=== PATIENT | female | born 1990 | race Caucasian/White ===

== ENCOUNTER → 2024-11-18 11:05 | Outpatient (REF) | payer OTHER, SELFPAY ==
--- NOTE | 2024-11-18 09:07 | PN.DIAED06 ---
Meal Plan - Gestational
- Breakfast
Gestational Diabetes Meal Plan Name: 2000 calories
Breakfast - Total Carbohydrate (grams): 45 (= 3/15 g. carb servings )
Breakfast - Starch Carbohydrate: 2
Breakfast - Fruit Carbohydrate: 0 (no fruit or juice before noon)
Breakfast - Milk Carbohydrate: 1
Breakfast - Nonstarchy Vegetables: Yes
Breakfast - Meat/Protein: 1 (1 serving protein = 1 oz/7 g)
Breakfast - Fat: 2 (1 serving fat = 5g)
- Morning Snack
Morning Snack - Total Carbohydrate (grams): 30 (= 2/15 g. carb servings)
Morning Snack - Starch Carbohydrate: 1
Morning Snack - Fruit Carbohydrate: 0 (no fruit or juice before noon)
Morning Snack - Milk Carbohydrate: 1
Morning Snack - Nonstarchy Vegetables: Yes
Morning Snack - Meat/Protein: 0
Morning Snack - Fat: 0
- Lunch
Lunch - Total Carbohydrate (grams): 45 (= 3/15 g. carb servings )
Lunch - Starch Carbohydrate: 1
Lunch - Fruit Carbohydrate: 1
Lunch - Milk Carbohydrate: 1
Lunch - Nonstarchy Vegetables: Yes
Lunch - Meat/Protein: 2
Lunch - Fat: 2
- Afternoon Snack
Afternoon Snack - Total Carbohydrate (grams): 30 (= 2/15 g. carb servings)
Afternoon Snack - Starch Carbohydrate: 1
Afternoon Snack - Fruit Carbohydrate: 1
Afternoon Snack - Milk Carbohydrate: 0
Afternoon Snack - Nonstarchy Vegetables: Yes
Afternoon Snack - Meat/Protein: 1
Afternoon Snack - Fat: 0
- Dinner
Dinner - Total Carbohydrate (grams): 45 (= 3/15 g. carb servings )
Dinner - Starch Carbohydrate: 2
Dinner - Fruit Carbohydrate: 1
Dinner - Milk Carbohydrate: 0
Dinner - Nonstarchy Vegetables: Yes
Dinner - Meat/Protein: 2
Dinner - Fat: 2
- Evening Snack
Evening Snack - Total Carbohydrate (grams): 45 (= 3/15 g. carb servings )
Evening Snack - Starch Carbohydrate: 1
Evening Snack - Fruit Carbohydrate: 1
Evening Snack - Milk Carbohydrate: 1
Evening Snack - Nonstarchy Vegetables: Yes
Evening Snack - Meat/Protein: 1
Evening Snack - Fat: 0
--- NOTE | 2024-11-18 14:10 | PN.DE ---
Diabetes Education
- -
11/18/2024 GESTATIONAL DIABETES EDUCATION CONSULT
Met with patient today for medical nutrition therapy. G2,P1 with an VIC of 02/26/2025.
Explained glucose metabolism in body and what occurs during to cause increase in blood sugar. Discussed importance of keeping BS well controlled to avoid complications to the baby during and after (macrosomia, hypoglycemia). Her
first delivery was as baby weighed over 9 lbs. Discussed macronutrients, provided with 2000 [place]aka GDM meal plan. She states she currently does not snack between meals, we discussed healthy snacks to keep glucose levels from dropping.
Discussed physical activity, she currently does not exercise. Discussed walking 10 minutes after meals, or 30 minutes after meals especially if her Am glucose readings are elevated. She is going to [place] on vacation for over a week, plans
to walk much more than usual.
Indu presented to the appointment with a new tritrue glucometer and supplies. Reviewed proper testing technique, testing sites and testing pattern. She is aware to test FBS and 2 hr pp each meal. Expected results for FBS <95 mg/dl and 2 hr pp
<120 mg/dl. Noted for blood sugar of 79 mg/dl 2.5 hrs after breakfast this morning. Log sheet provided for her to record results, she will send a 4-day meal log with all her FBG and 2hr Post prandial glucose numbers to this office for review. In
addition, [facility]. She was encouraged to reach out should she require insulin.
== END ==
LOC: DES 11:05
PROVIDERS: ATTENDING PHYSICIAN Obstetrics & Gynecology
DX: O24.419 Gestational diabetes mellitus in pregnancy, unspecified control (principal)
CPT/HCPCS: 99078

== ENCOUNTER → 2024-11-30 15:54 | Outpatient (REF) | payer OTHER, SELFPAY | LOC: PNTC 15:54 | PROVIDERS: ATTENDING PHYSICIAN Obstetrics & Gynecology | DX: O24.319 Unspecified pre-existing diabetes mellitus in pregnancy, unspecified trimester (principal) | CPT/HCPCS: 76816 ==

== ENCOUNTER → 2025-02-04 08:11 | Outpatient (REF) | payer OTHER, SELFPAY | LOC: PNTC 08:11 | PROVIDERS: ATTENDING PHYSICIAN Obstetrics & Gynecology | DX: O09.523 Supervision of elderly multigravida, third trimester (principal); O09.813 Supervision of pregnancy resulting from assisted reproductive technology, third trimester; O24.420 Gestational diabetes mellitus in childbirth, diet controlled | CPT/HCPCS: 59025; 76816 ==

== ENCOUNTER → 2025-02-11 08:22 | Outpatient (REF) | payer OTHER, SELFPAY | LOC: PNTC 08:22 | PROVIDERS: ATTENDING PHYSICIAN Obstetrics & Gynecology | DX: O24.410 Gestational diabetes mellitus in pregnancy, diet controlled (principal); O09.813 Supervision of pregnancy resulting from assisted reproductive technology, third trimester; O09.523 Supervision of elderly multigravida, third trimester | CPT/HCPCS: 59025; 76815 ==

== ENCOUNTER → 2025-02-18 08:05 | Outpatient (REF) | payer OTHER, SELFPAY | LOC: PNTC 08:05 | PROVIDERS: ATTENDING PHYSICIAN Obstetrics & Gynecology | DX: O09.813 Supervision of pregnancy resulting from assisted reproductive technology, third trimester (principal); O24.410 Gestational diabetes mellitus in pregnancy, diet controlled | CPT/HCPCS: 59025; 76815 ==

== ENCOUNTER 2025-02-23 05:42 | Inpatient (IN) | payer OTHER, SELFPAY ==
[2025-02-23 05:45] VITALS: BMI 29.3
[2025-02-23] MEDS: LR 1000 IV (06:00)
[2025-02-23 06:06] LABS: Glucose - Point of Care 86 mg/dl (70-99)
[2025-02-23 06:12] VITALS: BP 116/69
[2025-02-23 06:17] LABS: Hematocrit 34.0 % (37.0-47.0); Hemoglobin 11.8 g/dL (12.0-16.0); Mean Corp Hgb Conc. 34.7 g/dL (33.0-37.0); Mean Corpuscular Volume 90.4 fL (81.0-99.0); Platelet Count 294 10^3/uL (130-400); Red Cell Dist. Width 13.4 % (11.5-14.5)
[2025-02-23] MEDS: TYLENOL 975 MG PO (07:01)
[2025-02-23] MEDS: BICITRA 30 ML PO (07:01)
[2025-02-23] MEDS: ANCEF 10 IV (07:01)
[2025-02-23] MEDS: ROXICODONE 10 MG PO (10:35)
[2025-02-23] MEDS: TORADOL 15 MG IV ×2 (13:47→19:53)
[2025-02-23] MEDS: COLACE 100 MG PO (19:53)
[2025-02-23] MEDS: FLUSH (NSS) 3 FLUSH IV (19:55)
[2025-02-24] MEDS: TORADOL 15 MG IV ×2 (02:00→09:57)
--- NOTE | 2025-02-24 03:00 | DOWNTIME ---
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 Downtime documentation of patient's care, including medication administrations, has been reconciled in the electronic record per guidelines. Refer to the
patient's paper chart under the miscellaneous tab to see printed paper medication records and downtime forms.
[2025-02-24 04:18] LABS: Hematocrit 30.8 % (37.0-47.0); Hemoglobin 10.4 g/dL (12.0-16.0); Mean Corp Hgb Conc. 33.8 g/dL (33.0-37.0); Mean Corpuscular Volume 96.3 fL (81.0-99.0); Platelet Count 255 10^3/uL (130-400); Red Cell Dist. Width 13.4 % (11.5-14.5)
[2025-02-24] MEDS: MYLICON 80 MG PO ×3 (09:56→22:50)
[2025-02-24] MEDS: PRENATAL PLUS 1 TABLET PO (09:56)
[2025-02-24] MEDS: ZYRTEC 10 MG PO (09:56)
[2025-02-24] MEDS: COLACE 100 MG PO ×2 (09:56→19:55)
[2025-02-24] MEDS: FEOSOL 325 MG PO (09:56)
--- NOTE | 2025-02-24 13:26 | W.PN.ANS.POP ---
Anesthesia Post Operative
- Anesthesia Post Op Note
Vital Signs Stable-See Nursing Note: Yes
Airway Patent: Yes
Adequate Pain Control: Yes
Change in Mental Status: No
Current Postoperative Nausea & Vomiting: No
Anesthesia Complications: No
General Anesthetic Recall: No
Unplanned Admission: No
Post Op Hydration Adequate: Yes
[2025-02-24] MEDS: MOTRIN 600 MG PO ×2 (16:45→22:49)
[2025-02-24] MEDS: TYLENOL 650 MG PO ×2 (16:46→22:49)
[2025-02-25] MEDS: MOTRIN 600 MG PO ×3 (06:29→21:38)
[2025-02-25] MEDS: TYLENOL 650 MG PO ×3 (06:30→21:38)
[2025-02-25] MEDS: COLACE 100 MG PO ×2 (09:02→20:50)
[2025-02-25] MEDS: ZYRTEC 10 MG PO (09:02)
[2025-02-25] MEDS: FEOSOL 325 MG PO (09:02)
[2025-02-25] MEDS: PRENATAL PLUS 1 TABLET PO (09:02)
--- NOTE | 2025-02-26 07:50 | W.DS.TRANS ---
DC Summary - Computer Systems Designer
-
Discharge Instructions:
Discharge Diagnosis/Procedures caesarean section
Instructions:
Stand-Alone Forms: LDRP Delivery
Changes to Home Medications: No
Discharge Medications:
DC Medications w/original date entered in [facility]
cetirizine 10 mg tablet (Zyrtec) 10 mg PO DAILY Allergies 12/12/22
vit no.95-ferrous fumarate 28 mg-folic acid 800 mcg tablet () 1 tab PO DAILY Supplement 12/12/22
blood sugar diagnostic (Accu-Chek Guide test strips) #200 ea 11/17/24
blood-glucose meter (Accu-Chek Guide Glucose Meter) #1 ea 11/17/24
lancets (Accu-Chek Softclix Lancets) #200 ea 11/17/24
ferrous sulfate 325 mg (65 mg iron) tablet (FeroSul) 65 mg PO DAILY Supplement 02/23/25
acetaminophen 325 mg tablet 650 mg (2 x 325 mg) PO Q4HPRN PRN mild pain #0 tabs 02/26/25
docusate sodium 100 mg capsule 100 mg PO BID #0 caps 02/26/25
ibuprofen 600 mg tablet 600 mg PO Q6HPRN PRN cramps #30 tabs 02/26/25
sennosides 8.6 mg tablet (Sandie-rohit) 17.2 mg (2 x 8.6 mg) PO HSPRN PRN constipation #0 tabs 02/26/25
simethicone 80 mg chewable tablet 80 mg PO TIDPRN PRN flatulence #0 tabs 02/26/25
Home Medication Changes
Pending Results: No
Total time spent discharging patient (in min): 20
[2025-02-26] MEDS: FEOSOL 325 MG PO (08:39)
[2025-02-26] MEDS: PRENATAL PLUS 1 TABLET PO (08:39)
[2025-02-26] MEDS: TYLENOL 650 MG PO (08:39)
[2025-02-26] MEDS: ZYRTEC 10 MG PO (08:39)
[2025-02-26] MEDS: MOTRIN 600 MG PO (08:39)
[2025-02-26] MEDS: COLACE 100 MG PO (08:39)
[2025-02-26 16:34] LABS: Syphilis/T. pallidum Ab Reflex Negative (Negative)
== END 2025-02-26 14:38 | disposition home or self-care (01) | DRG 788 ==
LOC: LDRP 05:42
PROVIDERS: ADMITTING PHYSICIAN Obstetrics & Gynecology
PROC: 10D00Z1 Extraction of Products of Conception, Low, Open Approach (ICD-10-PCS; 2025-02-23)
PROC: 6A550ZT Pheresis of Cord Blood Stem Cells, Single (ICD-10-PCS; 2025-02-23)
DX: O34.211 Maternal care for low transverse scar from previous cesarean delivery (principal); Z3A.39 39 weeks gestation of pregnancy; Z37.0 Single live birth; O24.420 Gestational diabetes mellitus in childbirth, diet controlled; O90.81 Anemia of the puerperium; D64.9 Anemia, unspecified; Z14.8 Genetic carrier of other disease; Z80.3 Family history of malignant neoplasm of breast; Z80.0 Family history of malignant neoplasm of digestive organs; Z82.49 Family history of ischemic heart disease and other diseases of the circulatory system
CPT/HCPCS: 82962; 85027; 86780; 86850; 86900; 86901; 88307